=== PATIENT | female | born 1945 | race Caucasian/White ===

== ENCOUNTER 2019-03-02 10:27 | Outpatient (CLI) | payer MEDICARE | END 2019-03-02 23:59 | disposition home or self-care (01) | LOC: CFH 10:27 | PROVIDERS: ATTEND Family Medicine | DX: Z12.31 Encounter for screening mammogram for malignant neoplasm of breast (principal); M85.89 Other specified disorders of bone density and structure, multiple sites; N95.9 Unspecified menopausal and perimenopausal disorder | CPT/HCPCS: 77063; 77067; 77080 ==

== ENCOUNTER 2021-06-27 10:53 | Outpatient (CLI) | payer MEDICARE | END 2021-06-27 23:59 | disposition home or self-care (01) | LOC: CFH 10:53 | PROVIDERS: ATTEND Family Medicine | DX: Z12.31 Encounter for screening mammogram for malignant neoplasm of breast (principal); M81.0 Age-related osteoporosis without current pathological fracture; Z78.0 Asymptomatic menopausal state ==